=== PATIENT | female | born 1985 | race Caucasian/White ===

== ENCOUNTER 2016-12-26 19:20 | Emergency (ER) | payer OTHER, MEDICAID ==
[~2016-12-26] VITALS: Ht 175.3 cm; Wt 78.0 kg
[~2016-12-26 19:20] MED LIST: HYDR-3533 PO
[2016-12-26 19:30] VITALS: BP 109/73; PULSE 98; RESP 15; TEMP 98.2; O2SAT 98
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
[2016-12-26] MEDS ORDERED: DICL75TA PO (20:10)
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
== END 2016-12-26 21:07 | disposition home or self-care (01) ==
LOC: NEPK 19:20
DX: M13.852 Other specified arthritis, left hip (principal); M13.862 Other specified arthritis, left knee; M13.872 Other specified arthritis, left ankle and foot; R20.2 Paresthesia of skin; Z88.5 Allergy status to narcotic agent
CPT/HCPCS: 73502; 73560; 73600; 99283